=== PATIENT | female | born 1980 | race Hispanic/Latino ===

== ENCOUNTER 2019-09-08 12:12 | Emergency (ER) | payer OTHER ==
[2019-09-08] MEDS ORDERED: HYDROXYZINE HCL 25 MG TABLET ONE (12:43)
== END 2019-09-08 14:00 | disposition home or self-care (01) ==
LOC: EDH 12:12
DX: F41.1 Generalized anxiety disorder (principal); Z90.710 Acquired absence of both cervix and uterus; Z79.899 Other long term (current) drug therapy

== ENCOUNTER → 2024-11-17 | Outpatient (CLI) | payer OTHER ==
--- NOTE | 2024-11-17 17:12 | HMCIMG ---
THORACIC SPINE 2VWS HISTORY: Pain COMPARISON: None FINDINGS: 2 images of thoracic spine were obtained. There is straightening of normal lordotic curvature which may be related to muscle spasm or positioning. No loss of vertebral height is seen. No fracture or dislocation is seen. IMPRESSION: 1. No fracture is seen.
== END | disposition home or self-care (01) ==
LOC: RAH 15:50
PROVIDERS: ATTEND Family Medicine
DX: M54.6 Pain in thoracic spine (principal)
CPT/HCPCS: 72070